=== PATIENT | female | born 1925 | race American Indian/Alaskan Native ===

== ENCOUNTER 2016-11-03 14:37 | Inpatient (IN) | payer MEDICARE ==
[2016-11-03 15:35] LABS: Basophils % (Auto) 0.4 % (0.0-1.8); Eosinophils % (Auto) 0.9 % (0.0-4.3); Hematocrit 37.4 % (30.3-42.9); Hemoglobin 12.4 gm/dl (10.1-14.3); Mean Corpuscular HGB Conc 33 % (30-34); Mean Corpuscular Hemoglobin 30 pg (28-32); Mean Corpuscular Volume 91 fl (79-97); Platelet Count 173 K/mm3 (140-440); Red Cell Distribution Width 15.8 % (13.2-15.2); White Blood Count 10.5 K/mm3 (4.5-11.0)
[2016-11-03 15:46] LABS: BUN/Creatinine Ratio 15.83; Calcium 8.1 mg/dL (8.4-10.2); Chloride 96.3 mmol/L (98-107)
[2016-11-03 15:57] LABS: Potassium 2.6 mmol/L (3.6-5.0)
[2016-11-03] MEDS ORDERED: K-DUR PO ONE (20:11)
[2016-11-03] MEDS ORDERED: MAGNESIUM SULFATE 2GM/50ML 2 GM/50 ML BAG IV ONE (20:39)
--- NOTE | 2016-11-03 21:01 | Emergency Department Report ---
ED General Adult HPI - General Chief complaint: Dyspnea/Respdistress Stated complaint: LOW POTASSIUM Time Seen by Provider: 11/03/16 20:08 Source: family Mode of arrival: Wheelchair Limitations: Physical Limitation - History of Present Illness Initial comments: 89-year-old female with a past medical history dementia and, arthritis, CAD with stent placement, seizures, previous PE, TIA, and atrial fibrillation presents to the hospital complains of low potassium and shortness of breath. Patient outpatient lab work performed by primary care doctor. They received a call today the potassium was 2.8 that she should go to the hospital. Patient does take Lasix and a banana a day but no reports of potassium supplementation. History of hypokalemia in the past. Daughter at the bedside who states that patient does complain of shortness of breath on and off and intermittent lower extremity edema. No complaints of pain at this time. Patient is alert and oriented to self and place but not to year. Patient is wheelchair bound at baseline but able to transfer with assistance. PMD: Dr. Gillette Severity scale (0 -10): 0 - Related Data Home Medications Medication Instructions Recorded Confirmed Last Taken Sertraline HCl 50 mg PO DAILY 03/11/16 07/12/16 Unknown Atorvastatin 40 mg PO HS 03/12/16 07/12/16 Unknown Donepezil HCl 5 mg PO HS 03/12/16 07/12/16 Unknown Metoprolol Tartrate 100 mg PO BID 03/12/16 07/12/16 Unknown levETIRAcetam [Keppra TAB] 750 mg PO QHS 05/05/16 07/12/16 Unknown Furosemide [Lasix TAB] 20 mg PO QDAY 07/12/16 07/12/16 Unknown levETIRAcetam [Keppra TAB] 500 mg PO QAM 07/12/16 07/12/16 Unknown Previous Rx's Medication Instructions Recorded Last Taken Type QUEtiapine [SEROquel] 50 mg PO QHS tablet 03/22/16 Unknown Rx Levothyroxine [Synthroid] 25 mcg PO DAILY@0600 #30 tablet 05/09/16 Unknown Rx Aspirin [Aspirin BABY CHEW TAB] 81 mg PO QDAY #30 tab.chew 07/01/16 Unknown Rx Diltiazem Cd [Cardizem CD] 120 mg PO QDAY #30 capsule 07/15/16 Unknown Rx Allergies Allergy/AdvReac Type Severity Reaction Status Date / Time codeine Allergy Unknown Verified 05/08/14 08:34 tramadol Allergy Dizziness Verified 05/08/14 08:34 ED Review of Systems ROS: Stated complaint: LOW POTASSIUM Other details as noted in HPI Comment: All other systems reviewed and negative Other: Constitutional: No fevers chills Eyes: No eye pain visual changes ENT: No ear pain or throat pain Neck: Denies pain Respiratory: Denies cough wheezing shortness of breath Cardiovascular: Denies chest pain, palpitations, syncope GI: Denies abdominal pain, nausea, vomiting, : Denies dysuria Musculoskeletal: Denies back pain Skin: Denies rash, lesions, erythema Neurologic: Denies headache Psychiatric: Denies suicidal ideation, hallucinations ED Past Medical Hx - Past Medical History Hx Hypertension: Yes Hx Heart Attack/AMI: Yes (stents) Hx Congestive Heart Failure: Yes Hx Deep Vein Thrombosis: No Hx Renal Disease: No Hx Arthritis: Yes Hx Seizures: Yes (unspecified/last seizure March 2016) Hx Kidney Stones: No Hx Dementia: Yes Hx HIV: No Additional medical history: Gout, Hyperlipidemia, MRSA. TIA, PE, A-fib (No bloodthinners in med bag per [facility]) - Surgical History Hx Coronary Stent: Yes (2009 2 STENT SURGERIES) Hx Open Heart Surgery: No Hx Pacemaker: No Hx Internal Defibrillator: No Hx Cholecystectomy: No Hx Appendectomy: No Hx Breast Surgery: No Additional Surgical History: Bilateral Knee replacement, Hysterectomy,Afib - Social History Smoking Status: Never Smoker Substance Use Type: None - Medications Home Medications: Home Medications Medication Instructions Recorded Confirmed Last Taken Type Sertraline HCl 50 mg PO DAILY 03/11/16 07/12/16 Unknown History Atorvastatin 40 mg PO HS 03/12/16 07/12/16 Unknown History Donepezil HCl 5 mg PO HS 03/12/16 07/12/16 Unknown History Metoprolol Tartrate 100 mg PO BID 03/12/16 07/12/16 Unknown History QUEtiapine [SEROquel] 50 mg PO QHS tablet 03/22/16 07/12/16 Unknown Rx levETIRAcetam [Keppra TAB] 750 mg PO QHS 05/05/16 07/12/16 Unknown History Levothyroxine [Synthroid] 25 mcg PO DAILY@0600 #30 tablet 05/09/16 07/12/16 Unknown Rx Aspirin [Aspirin BABY CHEW TAB] 81 mg PO QDAY #30 tab.chew 07/01/16 07/12/16 Unknown Rx Furosemide [Lasix TAB] 20 mg PO QDAY 07/12/16 07/12/16 Unknown History levETIRAcetam [Keppra TAB] 500 mg PO QAM 07/12/16 07/12/16 Unknown History Diltiazem Cd [Cardizem CD] 120 mg PO QDAY #30 capsule 07/15/16 Unknown Rx ED Physical Exam - General Limitations: Physical Limitation - Other Other exam information: General: No limitations, patient is alert in no acute distress Head exam: Atraumatic, normocephalic Eyes exam: Normal appearance ENT: Moist mucous membrane, normal oropharynx Neck exam: Normal inspection, full range of motion, no meningismus nontender Respiratory exam: Diminished breath sounds right base, no tachypnea or accessory muscle use Cardiovascular: Irregular heart rhythm Abdomen: Soft, nondistended, and nontender, with normal bowel sounds, no rebound, or guarding Extremity: Full range of motion, trace edema lower extremity at this time Back: Normal Inspection, full range of motion, no tenderness Neurologic: Alert, oriented x3, cranial nerves intact, no motor or sensory deficit Psychiatric: normal affect, normal mood Skin: Warm, dry, intact ED Course Vital Signs 11/03/16 11/03/16 14:41 19:47 Temperature 98.6 F 98.1 F Pulse Rate 80 79 Respiratory 18 22 Rate Blood Pressure 152/89 Blood Pressure 154/95 [Left] O2 Sat by Pulse 98 97 Oximetry ED Medical Decision Making - Lab Data Result diagrams: 11/03/16 15:06 11/03/16 15:06 Lab Results 11/03/16 11/03/16 11/03/16 Range/Units 15:06 15:06 15:06 WBC 10.5 (4.5-11.0) K/mm3 RBC 4.10 (3.65-5.03) M/mm3 Hgb 12.4 (10.1-14.3) gm/dl Hct 37.4 (30.3-42.9) % MCV 91 (79-97) fl MCH 30 (28-32) pg MCHC 33 (30-34) % RDW 15.8 H (13.2-15.2) % Plt Count 173 (140-440) K/mm3 Lymph % (Auto) 5.5 L (13.4-35.0) % Edwards % (Auto) 5.5 (0.0-7.3) % Eos % (Auto) 0.9 (0.0-4.3) % Baso % (Auto) 0.4 (0.0-1.8) % Lymph # 0.6 L (1.2-5.4) K/mm3 Edwards # 0.6 (0.0-0.8) K/mm3 Eos # 0.1 (0.0-0.4) K/mm3 Baso # 0.0 (0.0-0.1) K/mm3 Seg Neutrophils % 87.7 H (40.0-70.0) % Seg Neutrophils # 9.2 H (1.8-7.7) K/mm3 Sodium 142 (137-145) mmol/L Potassium 2.6 L* (3.6-5.0) mmol/L Chloride 96.3 L (98-107) mmol/L Carbon Dioxide 30 (22-30) mmol/L Anion Gap 18 mmol/L BUN 19 H (7-17) mg/dL Creatinine 1.2 (0.7-1.2) mg/dL Estimated GFR 51 ml/min BUN/Creatinine Ratio 15.83 % Glucose 132 H (65-100) mg/dL Calcium 8.1 L (8.4-10.2) mg/dL Magnesium (1.7-2.3) mg/dL NT-Pro-B Natriuret Pep 4212 H (0-900) pg/mL 11/03/16 Range/Units 15:06 WBC (4.5-11.0) K/mm3 RBC (3.65-5.03) M/mm3 Hgb (10.1-14.3) gm/dl Hct (30.3-42.9) % MCV (79-97) fl MCH (28-32) pg MCHC (30-34) % RDW (13.2-15.2) % Plt Count (140-440) K/mm3 Lymph % (Auto) (13.4-35.0) % Edwards % (Auto) (0.0-7.3) % Eos % (Auto) (0.0-4.3) % Baso % (Auto) (0.0-1.8) % Lymph # (1.2-5.4) K/mm3 Edwards # (0.0-0.8) K/mm3 Eos # (0.0-0.4) K/mm3 Baso # (0.0-0.1) K/mm3 Seg Neutrophils % (40.0-70.0) % Seg Neutrophils # (1.8-7.7) K/mm3 Sodium (137-145) mmol/L Potassium (3.6-5.0) mmol/L Chloride (98-107) mmol/L Carbon Dioxide (22-30) mmol/L Anion Gap mmol/L BUN (7-17) mg/dL Creatinine (0.7-1.2) mg/dL Estimated GFR ml/min BUN/Creatinine Ratio % Glucose (65-100) mg/dL Calcium (8.4-10.2) mg/dL Magnesium 1.1 L (1.7-2.3) mg/dL NT-Pro-B Natriuret Pep (0-900) pg/mL - EKG Data -: EKG Interpreted by Me (atrial fibrillation rate 79 prolong QT) - EKG Data When compared to previous EKG there are: changes noted (A. fib however QTC 387 at that time compared to 541 today) - Radiology Data Radiology results: image reviewed (chest x-ray: A right pleural effusion) - Medical Decision Making Patient treated with by mouth potassium 40 mg and IV magnesium for hypokalemia and hypomagnesemia. Patient also has right pleural effusion on x-ray has had a history of right and bilateral pleural effusions past. Will admit to the hospital for further evaluation - Differential Diagnosis iatrogenic/drug side effect, poor by mouth intake, arrhythmia, CHF Critical Care Time: No Critical care attestation.: If time is entered above; I have spent that time in minutes in the direct care of this critically ill patient, excluding procedure time. ED Disposition Clinical Impression: Recurrent right pleural effusion, Hypokalemia, Hypomagnesemia, Dementia, Chronic atrial fibrillation Disposition: OP ADMITTED IP TO THIS HOSP Is pt being admited?: Yes Condition: Stable Time of Disposition: 21:03 (Dr Blum/hosp)
[2016-11-03 21:08] LABS: Bilirubin,Urine NEG (Negative); Blood,Urine NEG (Negative); Ketones,Urine NEG (Negative); Leukocyte Esterase,Urine NEG (Negative); Mucus,Urine FEW /HPF; Nitrite,Urine NEG (Negative); Urobilinogen,Urine < 2.0 mg/dL (<2.0)
[2016-11-03 21:13] LABS: Protein,Urine >500 mg/dL (Negative)
[2016-11-03] MEDS ORDERED: ZOFRAN IV PRN (23:01)
[2016-11-03] MEDS ORDERED: TYLENOL PO PRN (23:01)
[2016-11-03] MEDS ORDERED: DULCOLAX PR PRN (23:01)
[2016-11-03] MEDS ORDERED: MILK OF MAGNESIA PO PRN (23:01)
--- NOTE | 2016-11-03 23:11 | History and Physical Report ---
History of Present Illness Date of examination: 11/03/16 Date of admission: 11/03/16 21:03 Chief complaint: 11/03/2016 hypokalemia History of present illness: Patient 89-year-old female with extensive past medical history including dementia osteoarthritis coronary artery disease with stenting seizure disorder TIA atrial fibrillation currently was not on medication. Sees cardiology at [facility]. This is admission to receiving call from primary care physician Dr. Gillette about potassium was low. Patient arrived to the ER with a magnesium of 1.1 and a potassium of 2.6. This was initially corrected in the ER and can be reevaluated in the a.m. Patient also had atrial fibrillation which was no longer on any anticoagulation. Will discuss with cardiology what the benefits and risk may be why patient is not on any anticoagulation besides aspirin. Maybe aspirin alone is all she is a candidate for with her risk factors. Patient also had chronic pleural effusions which are most likely secondary to congestive heart failure we'll obtain an echocardiogram while patient is here. Patient also had some lower extremity edema which daughter is at bedside and had some concerns about. Important to note patient was taking Lasix by mouth and also a banana a day. Past History Past Medical History: arrhythmia, CAD, GERD, heart failure, hypertension, hyperlipidemia, seizures, other (TIA). denies: acute WI, atrial fib, arthritis , cancer, COPD, diabetes, dialysis, DVT, ESRD, hepatitis, HIV/AIDS, hyperthyroidism, hypothyroidism, liver disease, migraines, PVD, renal failure Past Surgical History: hysterectomy, total knee replacement, Other (placement) Social history: no significant social history, lives with family, full code. denies: smoking, alcohol abuse, prescription drug abuse, IV drug use Family history: hypertension Medications and Allergies Allergies Allergy/AdvReac Type Severity Reaction Status Date / Time codeine Allergy Unknown Verified 05/08/14 08:34 tramadol Allergy Dizziness Verified 05/08/14 08:34 Home Medications Medication Instructions Recorded Confirmed Last Taken Type Sertraline HCl 50 mg PO DAILY 03/11/16 07/12/16 Unknown History Atorvastatin 40 mg PO HS 03/12/16 07/12/16 Unknown History Donepezil HCl 5 mg PO HS 03/12/16 07/12/16 Unknown History Metoprolol Tartrate 100 mg PO BID 03/12/16 07/12/16 Unknown History QUEtiapine [SEROquel] 50 mg PO QHS tablet 03/22/16 07/12/16 Unknown Rx levETIRAcetam [Keppra TAB] 750 mg PO QHS 05/05/16 07/12/16 Unknown History Levothyroxine [Synthroid] 25 mcg PO DAILY@0600 #30 tablet 05/09/16 07/12/16 Unknown Rx Aspirin [Aspirin BABY CHEW TAB] 81 mg PO QDAY #30 tab.chew 07/01/16 07/12/16 Unknown Rx Furosemide [Lasix TAB] 20 mg PO QDAY 07/12/16 07/12/16 Unknown History levETIRAcetam [Keppra TAB] 500 mg PO QAM 07/12/16 07/12/16 Unknown History Diltiazem Cd [Cardizem CD] 120 mg PO QDAY #30 capsule 07/15/16 Unknown Rx Review of Systems Constitutional: fatigue, weakness, no weight loss, no weight gain, no fever, no chronic pain, no other Ears, nose, mouth and throat: no deferred, no ear pain, no tinnitis, no decreased hearing, no nose pain, no nasal discharge, no bleeding gums, no mouth pain, no dysphagia, no hoarseness, no sore throat, no swelling in mouth, no headache, no vertigo, no pain front of neck, no neck fullness/pressure, no other Cardiovascular: rapid/irregular heart beat, lightheadedness, high blood pressure , leg edema, no chest pain, no orthopnea, no palpitations, no edema, no syncope , no shortness of breath, no dyspnea on exertion Respiratory: no cough with sputum, no excessive sputum, no dyspnea on exertion, no congestion, no wheezing, no pleurisy, no pain, no pain on inspiration Gastrointestinal: no vomiting, no diarrhea, no constipation, no hematochezia, no loss of appetite, no early satiety, no indigestion, no dyspepsia/bloating, no early satiety Genitourinary Female: stress incontinence, urge incontinence, no urinary frequency Menstruation: post hysterectomy Musculoskeletal: morning stiffness, muscle weakness, limitation of motion, arthritis, no neck pain, no shooting arm pain, no arm numbness/tingling, no shooting leg pain, no fractures, no loss of height Integumentary: no rash, no redness, no sores, no bullae, no lesions, no acne, no dryness, no striae, no hirsutism, no foot/leg ulcers Neurological: head injury, seizures, confusion, memory loss, hearing difficulties, other (poor cognition), no weakness, no numbness, no tingling, no lack of coordination Psychiatric: no change in sleep habits, no insomnia, no hypersomnia, no suicidal ideation, no disorientation Endocrine: no heat intolerance, no excessive thirst, no polydipsia, no polyuria , no excessive sweating, no proptosis, no thyroid mass, no palpatations, no low blood sugars, no recent glucocorticoid use Hematologic/Lymphatic: no lymphadenopathy, no lymphedema Allergic/Immunologic: no urticaria, no gluten intolerance, no seasonal allergies Exam - Constitutional Vitals: Temp Pulse Resp BP Pulse Ox 98.2 F 80 18 157/89 98 11/03/16 22:07 11/03/16 22:07 11/03/16 22:07 11/03/16 22:07 11/03/16 22:07 General appearance: Present: no acute distress, well-nourished - EENT Eyes: Present: PERRL ENT: hearing intact, clear oral mucosa - Neck Neck: Present: supple, normal ROM - Respiratory Respiratory effort: normal Respiratory: bilateral: CTA - Cardiovascular Heart Sounds: Present: S1 & S2. Absent: rub, click - Extremities Extremities: pulses symmetrical Extremity abnormal: edema, other (+2 pitting edema) Peripheral Pulses: within normal limits - Abdominal General gastrointestinal: Present: soft, non-tender, non-distended, normal bowel sounds - Integumentary Integumentary: Present: clear, warm, dry - Musculoskeletal Musculoskeletal: generalized weakness - Psychiatric Psychiatric: cooperative, other (4 cognition) - Neurologic Neurologic: focal deficits Results - Labs CBC & Chem 7: 11/03/16 15:06 11/03/16 15:06 Labs: Laboratory Last Values WBC 10.5 K/mm3 (4.5-11.0) 11/03/16 15:06 RBC 4.10 M/mm3 (3.65-5.03) 11/03/16 15:06 Hgb 12.4 gm/dl (10.1-14.3) 11/03/16 15:06 Hct 37.4 % (30.3-42.9) 11/03/16 15:06 MCV 91 fl (79-97) 11/03/16 15:06 MCH 30 pg (28-32) 11/03/16 15:06 MCHC 33 % (30-34) 11/03/16 15:06 RDW 15.8 % (13.2-15.2) H 11/03/16 15:06 Plt Count 173 K/mm3 (140-440) 11/03/16 15:06 Lymph % (Auto) 5.5 % (13.4-35.0) L 11/03/16 15:06 Winston % (Auto) 5.5 % (0.0-7.3) 11/03/16 15:06 Eos % (Auto) 0.9 % (0.0-4.3) 11/03/16 15:06 Baso % (Auto) 0.4 % (0.0-1.8) 11/03/16 15:06 Lymph # 0.6 K/mm3 (1.2-5.4) L 11/03/16 15:06 Winston # 0.6 K/mm3 (0.0-0.8) 11/03/16 15:06 Eos # 0.1 K/mm3 (0.0-0.4) 11/03/16 15:06 Baso # 0.0 K/mm3 (0.0-0.1) 11/03/16 15:06 Seg Neutrophils % 87.7 % (40.0-70.0) H 11/03/16 15:06 Seg Neutrophils # 9.2 K/mm3 (1.8-7.7) H 11/03/16 15:06 Sodium 142 mmol/L (137-145) 11/03/16 15:06 Potassium 2.6 mmol/L (3.6-5.0) L* 11/03/16 15:06 Chloride 96.3 mmol/L (98-107) L 11/03/16 15:06 Carbon Dioxide 30 mmol/L (22-30) 11/03/16 15:06 Anion Gap 18 mmol/L 11/03/16 15:06 BUN 19 mg/dL (7-17) H 11/03/16 15:06 Creatinine 1.2 mg/dL (0.7-1.2) 11/03/16 15:06 Estimated GFR 51 ml/min 02/23/17 15:06 BUN/Creatinine Ratio 15.83 % 11/03/16 15:06 Glucose 132 mg/dL (65-100) H 11/03/16 15:06 Calcium 8.1 mg/dL (8.4-10.2) L 11/03/16 15:06 Magnesium 1.1 mg/dL (1.7-2.3) L 11/03/16 15:06 NT-Pro-B Natriuret Pep 4212 pg/mL (0-900) H 11/03/16 15:06 Urine Color Yellow (Yellow) 11/03/16 20:42 Urine Turbidity Clear (Clear) 11/03/16 20:42 Urine pH 5.0 (5.0-7.0) 11/03/16 20:42 Ur Specific [place] 1.022 (1.003-1.030) 11/03/16 20:42 Urine Protein >500 mg/dL (Negative) 11/03/16 20:42 Urine Glucose (UA) Neg mg/dL (Negative) 11/03/16 20:42 Urine Ketones Neg mg/dL (Negative) 11/03/16 20:42 Urine Blood Neg (Negative) 11/03/16 20:42 Urine Nitrite Neg (Negative) 11/03/16 20:42 Urine Bilirubin Neg (Negative) 11/03/16 20:42 Urine Urobilinogen < 2.0 mg/dL (<2.0) 11/03/16 20:42 Ur Leukocyte Esterase Neg (Negative) 11/03/16 20:42 Urine WBC (Auto) 1.0 /HPF (0.0-6.0) 11/03/16 20:42 Urine RBC (Auto) 1.0 /HPF (0.0-6.0) 11/03/16 20:42 U Epithel Cells (Auto) < 1.0 /HPF (0-13.0) 11/03/16 20:42 Hyaline Casts 1 /LPF 11/03/16 20:42 Urine Mucus Few /HPF 11/03/16 20:42 Assessment and Plan Advance Directives: Yes VTE prophylaxis?: Chemical Plan of care discussed with patient/family: Yes - Patient Problems (1) Chronic atrial fibrillation Current Visit: Yes Status: Acute Plan to address problem: She'll with chronic A. fib currently on aspirin alone. This may be staying for patient with low risk. We'll need to review past history from cardiology [facility]. We'll continue aspirin alone at this particular time rate fairly well-controlled. Patient though remains irregular. Cristy gives vague history of possible bleeding therefore would not use Coumadin at this particular time risk may outweigh benefits. We need more information. She'll continue Cardizem and metoprolol which patient is currently taking now. (2) Hypokalemia Current Visit: Yes Status: Acute Plan to address problem: Upper kalemia most likely secondary to patient being on diarrhetic and no potassium supplementation has been corrected in the ED will follow-up labs in the a.m. to make sure magnesium and potassium is fully corrected and will titrate accordingly. (3) Hypomagnesemia Current Visit: Yes Status: Acute Plan to address problem: Again corrected in ED will follow-up magnesium in a.m. to ensure fully corrected. (4) Recurrent right pleural effusion Current Visit: Yes Status: Acute Plan to address problem: Recurrent right pleural effusion most likely secondary to chronic congestive heart failure. We'll obtain echocardiogram cardiology consult with Jad can evaluate echo and atrial fibrillation. (5) Dementia Current Visit: Yes Status: Chronic Qualifiers: Dementia type: D Alzheimer's disease onset: A Dementia behavioral disturbance: without behavioral disturbance (6) Hypertension Current Visit: No Status: Chronic Qualifiers: Hypertension type: essential hypertension Qualified Code(s): I10 - Essential (primary) hypertension Plan to address problem: Continue all antihypertensives for now blood pressure on average 157/89 with titrate accordingly.
[2016-11-04] MEDS: ZOLOFT PO SCH ×2 (01:08→10:34)
[2016-11-04] MEDS: LOPRESSOR PO SCH ×3 (01:09→21:34)
[2016-11-04] MEDS: SYNTHROID PO SCH (05:44)
[2016-11-04 06:00] LABS: Albumin/Globulin Ratio 1.1 %; BUN/Creatinine Ratio 15.45; Bilirubin,Total 0.6 mg/dL (0.1-1.2); Calcium 7.4 mg/dL (8.4-10.2); Chloride 99.4 mmol/L (98-107); Total Protein 5.8 g/dL (6.3-8.2)
--- NOTE | 2016-11-04 08:39 | Admit Criteria Form ---
Admission Criteria Documentation: PLEURAL EFFUSION Clinical Indications for Admission to Inpatient Care (Place 'X' for any and all applicable criteria): Admission is indicated for ANY ONE of the following (1)(2)(3): [ ]I. Pneumonia-related effusion requiring drainage as indicated by ANY ONE of the following [A]: [ ]a) Large pleural effusion (symptomatic or greater than one-half of hemithorax) [ ]b) Loculated effusion [ ]c) Pleural thickening [ ]d) Pleural fluid analysis results, including ANY ONE of the following: [ ]i) Positive Gram stain or culture for bacteria [ ]ii) Pus [ ]iii) pH less than 7.20 [ X]II. Inpatient admission required rather than observation care (Also use Pleural Effusion: Observation Care criteria as appropriate) because of ANY ONE of the following: [ ]a) Hemodynamic instability that is severe or persistent [X ]b) Respiratory distress that is severe or persistent [ ]c) Complication of drainage (e.g., pneumothorax) that requires inpatient care [ ]d) Etiology that requires inpatient care (e.g., pulmonary embolism , trauma) [ ]e) Severe pain requiring acute inpatient management [ ]f) Supplemental O2 or respiration drug for over 24 hrs that are performable only in an inpatient setting [ ]g) Chest tube placement with active evacuation (e.g., suction, drainage) [ ]h) Pulmonary artery catheter monitoring [ ]i) Epidural analgesia (8) [ ]j) Continuous IV infusion of anticoagulation, platelet inhibitor, vasoactive, or antiarrhythmic medication. [X ]k) Other condition, treatment or monitoring requiring inpatient admission [ ]l) Immediate inpatient surgery [ ]III. Hemothorax [ ]IV. Empyema [ ]V. Pleural effusion with concomitant pneumothorax [X ]. Recurrent or malignant pleural effusion requiring pleurodesis (4) Extended stay beyond goal length of stay may be needed for (27)(28): [ ]a) Empyema or complicated parapneumonic effusion (24)(29) [ ]b) Malignant pleural effusion (4) [ ]c) Pleural effusion due to trauma or perforated esophagus [ ]d) Pleural effusion due to pulmonary embolism (30) [ ]e) Clinically significant re-expansion pulmonary edema [ ]f) Hemothorax [ ]g) Renal failure [ ]h) Trapped lung (e.g., benign or malignant thickened pleura preventing lung re-expansion) (31) [ ]i) Underlying etiology necessitates ongoing inpatient care (e.g., pneumonia, heart failure, malignancy) [ ]j) Complications of thoracentesis, thoracostomy tube, or pleural cath. placement The original [facility] [employer] content created by [facility] [employer] has been revised. The portions of the content which have been revised are identified through the use of italic text or in bold, and [facility] [employer] has neither reviewed nor approved the modified material. All other unmodified content is copyright [facility] [employer]. Please see references footnoted in the original [facility] [employer] edition 2016 Admission Criteria Met: Yes
[2016-11-04] MEDS ORDERED: K-DUR PO ONE ×2 (09:30→16:30)
[2016-11-04] MEDS ORDERED: LOPRESSOR PO SCH (10:00)
[2016-11-04] MEDS ORDERED: LOVENOX SUB-Q SCH (10:00)
[2016-11-04] MEDS ORDERED: ZOLOFT PO SCH (10:00)
[2016-11-04] MEDS ORDERED: PEPCID IV SCH (10:00)
[2016-11-04] MEDS: LOVENOX SUB-Q SCH (10:33)
[2016-11-04] MEDS: KEPPRA PO SCH ×2 (10:35→21:30)
[2016-11-04] MEDS: BABY ASPIRIN PO SCH (10:35)
--- NOTE | 2016-11-04 10:56 | XRay Report ---
Single view chest: Compared to 07/12/16. History: Shortness of breath. Findings: Cardiomegaly with bilateral pleural effusion. No consolidation. No significant interval change. Impression: No significant interval change.
[2016-11-04] MEDS: CARDIZEM CD PO SCH (13:09)
--- NOTE | 2016-11-04 16:36 | Progress Note ---
Assessment and Plan Assessment and plan: A. fib with RVR - Patient is on diltiazem, metoprolol - Patient's heart rate showed in the 150's and 160's - Patient is transferred to IV metoprolol to telemetry floor - Cardiology consult is placed Hypokalemia and hypomagnesemia - Repleted - We will check BMP and magnesium stat Disposition Plan: we'll be discharged once the arrhythmia is controlled History Interval history: Patient denied any chest pain, tele monitor showed A. fib with RVR. Hospitalist Physical - Physical exam Narrative exam: Not in cardiopulmonary distress. Vital signs as documented. Head exam is unremarkable. No scleral icterus . Neck is without jugular venous distension, thyromegaly, or carotid bruits. Lungs are clear to auscultation. Cardiac exam reveals regularly irregular. Abdominal exam reveals normal bowel sounds, no masses, no organomegaly and no aortic enlargement. Extremities are nonedematous and both femoral and pedal pulses are normal. 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 No focal weakness. - Constitutional Vitals: Temp Pulse Resp BP Pulse Ox 98.2 F 125 H 22 115/101 99 11/04/16 14:44 11/04/16 14:44 11/04/16 14:44 11/04/16 14:44 11/04/16 14:44 General appearance: Present: no acute distress, well-nourished Results - Labs CBC & Chem 7: 11/03/16 15:06 11/04/16 04:26 Labs: Laboratory Last Values WBC 10.5 K/mm3 (4.5-11.0) 11/03/16 15:06 RBC 4.10 M/mm3 (3.65-5.03) 11/03/16 15:06 Hgb 12.4 gm/dl (10.1-14.3) 11/03/16 15:06 Hct 37.4 % (30.3-42.9) 11/03/16 15:06 MCV 91 fl (79-97) 11/03/16 15:06 MCH 30 pg (28-32) 11/03/16 15:06 MCHC 33 % (30-34) 11/03/16 15:06 RDW 15.8 % (13.2-15.2) H 11/03/16 15:06 Plt Count 173 K/mm3 (140-440) 11/03/16 15:06 Lymph % (Auto) 5.5 % (13.4-35.0) L 11/03/16 15:06 [place] % (Auto) 5.5 % (0.0-7.3) 11/03/16 15:06 Eos % (Auto) 0.9 % (0.0-4.3) 11/03/16 15:06 Baso % (Auto) 0.4 % (0.0-1.8) 11/03/16 15:06 Lymph # 0.6 K/mm3 (1.2-5.4) L 11/03/16 15:06 [place] # 0.6 K/mm3 (0.0-0.8) 11/03/16 15:06 Eos # 0.1 K/mm3 (0.0-0.4) 11/03/16 15:06 Baso # 0.0 K/mm3 (0.0-0.1) 11/03/16 15:06 Seg Neutrophils % 87.7 % (40.0-70.0) H 11/03/16 15:06 Seg Neutrophils # 9.2 K/mm3 (1.8-7.7) H 11/03/16 15:06 Sodium 142 mmol/L (137-145) 11/04/16 04:26 Potassium 3.0 mmol/L (3.6-5.0) L 11/04/16 04:26 Chloride 99.4 mmol/L (98-107) 11/04/16 04:26 Carbon Dioxide 28 mmol/L (22-30) 11/04/16 04:26 Anion Gap 18 mmol/L 11/04/16 04:26 BUN 17 mg/dL (7-17) 11/04/16 04:26 Creatinine 1.1 mg/dL (0.7-1.2) 11/04/16 04:26 Estimated GFR 57 ml/min 11/04/16 04:26 BUN/Creatinine Ratio 15.45 % 11/04/16 04:26 Glucose 92 mg/dL (65-100) 11/04/16 04:26 Calcium 7.4 mg/dL (8.4-10.2) L 11/04/16 04:26 Magnesium 1.1 mg/dL (1.7-2.3) L 11/03/16 15:06 Total Bilirubin 0.6 mg/dL (0.1-1.2) 11/04/16 04:26 AST 30 units/L (5-40) 11/04/16 04:26 ALT 21 units/L (7-56) 11/04/16 04:26 Alkaline Phosphatase 110 units/L (35-129) 11/04/16 04:26 NT-Pro-B Natriuret Pep 4212 pg/mL (0-900) H 11/03/16 15:06 Total Protein 5.8 g/dL (6.3-8.2) L 11/04/16 04:26 Albumin 3.0 g/dL (3.9-5) L 11/04/16 04:26 Albumin/Globulin Ratio 1.1 % 11/04/16 04:26 Urine Color Yellow (Yellow) 11/03/16 20:42 Urine Turbidity Clear (Clear) 11/03/16 20:42 Urine pH 5.0 (5.0-7.0) 11/03/16 20:42 Ur Specific [place] 1.022 (1.003-1.030) 11/03/16 20:42 Urine Protein >500 mg/dL (Negative) 11/03/16 20:42 Urine Glucose (UA) Neg mg/dL (Negative) 11/03/16 20:42 Urine Ketones Neg mg/dL (Negative) 11/03/16 20:42 Urine Blood Neg (Negative) 11/03/16 20:42 Urine Nitrite Neg (Negative) 11/03/16 20:42 Urine Bilirubin Neg (Negative) 11/03/16 20:42 Urine Urobilinogen < 2.0 mg/dL (<2.0) 11/03/16 20:42 Ur Leukocyte Esterase Neg (Negative) 11/03/16 20:42 Urine WBC (Auto) 1.0 /HPF (0.0-6.0) 11/03/16 20:42 Urine RBC (Auto) 1.0 /HPF (0.0-6.0) 11/03/16 20:42 U Epithel Cells (Auto) < 1.0 /HPF (0-13.0) 11/03/16 20:42 Hyaline Casts 1 /LPF 11/03/16 20:42 Urine Mucus Few /HPF 11/03/16 20:42 Hypokalemia
[2016-11-04] MEDS: LOPRESSOR IV PRN (17:58)
[2016-11-04 19:22] LABS: Anion Gap 19 mmol/L; Blood Urea Nitrogen 18 mg/dL (7-17); Calcium 7.9 mg/dL (8.4-10.2); Carbon Dioxide 28 mmol/L (22-30); Glucose 119 mg/dL (65-100); Potassium 3.8 mmol/L (3.6-5.0); Sodium 141 mmol/L (137-145)
[2016-11-04] MEDS: ARICEPT PO SCH (21:34)
[2016-11-04] MEDS: PEPCID IV SCH (21:35)
[2016-11-05 05:18] LABS: Anion Gap 20 mmol/L; Blood Urea Nitrogen 20 mg/dL (7-17); Carbon Dioxide 25 mmol/L (22-30); Chloride 100.1 mmol/L (98-107); Glucose 105 mg/dL (65-100); Magnesium 1.3 mg/dL (1.7-2.3); Sodium 141 mmol/L (137-145)
[2016-11-05] MEDS: SYNTHROID PO SCH (06:28)
[2016-11-05] MEDS: LOPRESSOR IV PRN (06:28)
[2016-11-05] MEDS: MORPHINE IV PRN ×3 (10:00→21:17)
[2016-11-05] MEDS: CARDIZEM CD PO SCH (10:09)
[2016-11-05] MEDS: BABY ASPIRIN PO SCH (10:10)
[2016-11-05] MEDS: LOPRESSOR PO SCH ×2 (10:10→21:14)
[2016-11-05] MEDS: ZOLOFT PO SCH (10:11)
[2016-11-05] MEDS: PEPCID IV SCH ×2 (10:11→21:17)
[2016-11-05] MEDS: KEPPRA PO SCH ×2 (10:12→21:15)
[2016-11-05] MEDS: LOVENOX SUB-Q SCH (10:12)
--- NOTE | 2016-11-05 11:08 | Consultation ---
History of Present Illness Consult date: 11/05/16 Consult reason: atrial fibrillation Past History Past Medical History: arrhythmia, CAD, GERD, heart failure, hypertension, hyperlipidemia, seizures, other (TIA). denies: acute HI, atrial fib, arthritis , cancer, COPD, diabetes, dialysis, DVT, ESRD, hepatitis, HIV/AIDS, hyperthyroidism, hypothyroidism, liver disease, migraines, PVD, renal failure Past Surgical History: hysterectomy, total knee replacement, Other (placement) Social history: no significant social history, lives with family, full code. denies: smoking, alcohol abuse, prescription drug abuse, IV drug use Family history: hypertension Medications and Allergies Allergies Allergy/AdvReac Type Severity Reaction Status Date / Time codeine Allergy Unknown Verified 05/08/14 08:34 tramadol Allergy Dizziness Verified 05/08/14 08:34 Home Medications Medication Instructions Recorded Confirmed Last Taken Type Sertraline HCl 50 mg PO DAILY 03/11/16 07/12/16 Unknown History Atorvastatin 40 mg PO HS 03/12/16 07/12/16 Unknown History Donepezil HCl 5 mg PO HS 03/12/16 07/12/16 Unknown History Metoprolol Tartrate 100 mg PO BID 03/12/16 07/12/16 Unknown History QUEtiapine [SEROquel] 50 mg PO QHS tablet 03/22/16 07/12/16 Unknown Rx levETIRAcetam [Keppra TAB] 750 mg PO QHS 05/05/16 07/12/16 Unknown History Levothyroxine [Synthroid] 25 mcg PO DAILY@0600 #30 tablet 05/09/16 07/12/16 Unknown Rx Aspirin [Aspirin BABY CHEW TAB] 81 mg PO QDAY #30 tab.chew 07/01/16 07/12/16 Unknown Rx Furosemide [Lasix TAB] 20 mg PO QDAY 07/12/16 07/12/16 Unknown History levETIRAcetam [Keppra TAB] 500 mg PO QAM 07/12/16 07/12/16 Unknown History Diltiazem Cd [Cardizem CD] 120 mg PO QDAY #30 capsule 07/15/16 Unknown Rx Active Meds: Active Medications Acetaminophen (Tylenol) 650 mg PO Q4H PRN PRN Reason: Pain MILD(1-3)/Fever >100.5/PAGE Last Admin: 11/04/16 21:28 Dose: 650 mg Aspirin (Baby Aspirin) [address] [facility] Last Admin: 11/05/16 10:10 Dose: 81 mg Bisacodyl (Dulcolax) 10 mg [place] QDAY PRN PRN Reason: Constipation unrelieved by MOM Diltiazem HCl (Cardizem Cd) [address] [facility] Last Admin: 11/05/16 10:09 Dose: 120 mg Donepezil HCl (Aricept) [address] [facility] Last Admin: 11/04/16 21:34 Dose: 5 mg Enoxaparin Sodium (Lovenox) 40 mg SUB-Q QDAY [facility] Last Admin: 11/05/16 10:12 Dose: 40 mg Famotidine (Pepcid) [address] [facility] Last Admin: 11/05/16 10:11 Dose: 10 mg Levetiracetam (Keppra) [address] [facility] Last Admin: 11/05/16 10:12 Dose: 500 mg Levetiracetam (Keppra) [address] [facility] Last Admin: 11/04/16 21:30 Dose: 750 mg Levothyroxine Sodium (Synthroid) 25 mcg PO DAILY@0600 [facility] Last Admin: 11/05/16 06:28 Dose: 25 mcg Magnesium Hydroxide (Milk Of Magnesia) 30 ml PO Q4H PRN PRN Reason: Constipation Metoprolol Tartrate (Lopressor) [address] [facility] Last Admin: 11/05/16 10:10 Dose: 100 mg Metoprolol Tartrate (Lopressor) 5 mg IV Q6HR PRN PRN Reason: Tachyarrhythmias Last Admin: 11/05/16 06:28 Dose: 5 mg Morphine Sulfate (Morphine) 2 mg IV Q4H PRN PRN Reason: Pain, Moderate (4-6) Ondansetron HCl (Zofran) 4 mg IV Q8H PRN PRN Reason: N/V unrelieved by Reglan Quetiapine Fumarate (Seroquel) [address] [facility] Sertraline HCl (Zoloft) [address] [facility] Last Admin: 11/05/16 10:11 Dose: 50 mg Physical Examination Vital Signs Temp Pulse Resp BP Pulse Ox 98.6 F 80 18 152/89 98 11/03/16 14:41 11/03/16 14:41 11/03/16 14:41 11/03/16 14:41 11/03/16 14:41 Results 11/03/16 15:06 11/05/16 04:18 Cardiac Enzymes 11/04/16 11/04/16 11/04/16 Range/Units 04:26 18:24 18:24 Sodium 142 141 (137-145) mmol/L Potassium 3.0 L 3.8 D (3.6-5.0) mmol/L Chloride 99.4 98.0 (98-107) mmol/L Carbon Dioxide 28 28 (22-30) mmol/L Anion Gap 18 19 mmol/L BUN 17 18 H (7-17) mg/dL Creatinine 1.1 1.0 (0.7-1.2) mg/dL Estimated GFR 57 > 60 ml/min BUN/Creatinine Ratio 15.45 18.00 % Glucose 92 119 H (65-100) mg/dL Calcium 7.4 L 7.9 L (8.4-10.2) mg/dL Magnesium 1.8 (1.7-2.3) mg/dL Total Bilirubin 0.6 (0.1-1.2) mg/dL ALT 21 (7-56) units/L Alkaline Phosphatase 110 (35-129) units/L Total Protein 5.8 L (6.3-8.2) g/dL Albumin 3.0 L (3.9-5) g/dL Albumin/Globulin Ratio 1.1 % 11/05/16 Range/Units 04:18 Sodium 141 (137-145) mmol/L Potassium 4.0 (3.6-5.0) mmol/L Chloride 100.1 (98-107) mmol/L Carbon Dioxide 25 (22-30) mmol/L Anion Gap 20 mmol/L BUN 20 H (7-17) mg/dL Creatinine 1.0 (0.7-1.2) mg/dL Estimated GFR > 60 ml/min BUN/Creatinine Ratio 20.00 % Glucose 105 H (65-100) mg/dL Calcium 8.0 L (8.4-10.2) mg/dL Magnesium 1.3 L (1.7-2.3) mg/dL Total Bilirubin (0.1-1.2) mg/dL ALT (7-56) units/L Alkaline Phosphatase (35-129) units/L Total Protein (6.3-8.2) g/dL Albumin (3.9-5) g/dL Albumin/Globulin Ratio % Comprehensive Metabolic Panel 11/04/16 11/05/16 Range/Units 18:24 04:18 Sodium 141 141 (137-145) mmol/L Potassium 3.8 D 4.0 (3.6-5.0) mmol/L Chloride 98.0 100.1 (98-107) mmol/L Carbon Dioxide 28 25 (22-30) mmol/L BUN 18 H 20 H (7-17) mg/dL Creatinine 1.0 1.0 (0.7-1.2) mg/dL Glucose 119 H 105 H (65-100) mg/dL Calcium 7.9 L 8.0 L (8.4-10.2) mg/dL Assessment and Plan 89yo AAF: Paroxysmal atrial fibrillation with RVR Currently rate controlled. Continue Lopressor and Cardizem. Pt is not currently a candidate for anticoagulation given dementia, advanced age, and multiple co-morbidities. tte 06/26 re-reviewed Hypokalemia repleted HLP Cont statin. HTN Stable. Hypothyroidism CAD, s/p PCI Seizure d/o Dementia Advanced age clinically improved discussed with daughter at bedside
--- NOTE | 2016-11-05 15:55 | Progress Note ---
Assessment and Plan Assessment and plan: A. fib with RVR - Patient is on diltiazem, metoprolol - Patient's heart rate controlled - Patient is transferred to IV metoprolol to telemetry floor - Cardiology consult is placed Dementia - continue with home medications - Supportive care - Patient was agitated and sitter was in the room Hypokalemia and hypomagnesemia - Repleted Continue to monitor History Interval history: Patient denied any chest pain, tele monitor showed A. fib. Hospitalist Physical - Physical exam Narrative exam: Not in cardiopulmonary distress. Vital signs as documented. Head exam is unremarkable. No scleral icterus . Neck is without jugular venous distension, thyromegaly, or carotid bruits. Lungs are clear to auscultation. Cardiac exam reveals irregularly irregular. Abdominal exam reveals normal bowel sounds, no masses, no organomegaly and no aortic enlargement. Extremities are nonedematous and both femoral and pedal pulses are normal. 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 No focal weakness. - Constitutional Vitals: Temp Pulse Resp BP Pulse Ox 97.5 F L 140 H 18 175/129 97 11/05/16 13:56 11/05/16 13:56 11/05/16 13:56 11/05/16 13:56 11/05/16 13:56 General appearance: Present: no acute distress, well-nourished Results - Labs CBC & Chem 7: 11/03/16 15:06 11/05/16 04:18 Labs: Laboratory Last Values WBC 10.5 K/mm3 (4.5-11.0) 11/03/16 15:06 RBC 4.10 M/mm3 (3.65-5.03) 11/03/16 15:06 Hgb 12.4 gm/dl (10.1-14.3) 11/03/16 15:06 Hct 37.4 % (30.3-42.9) 11/03/16 15:06 MCV 91 fl (79-97) 11/03/16 15:06 MCH 30 pg (28-32) 11/03/16 15:06 MCHC 33 % (30-34) 11/03/16 15:06 RDW 15.8 % (13.2-15.2) H 11/03/16 15:06 Plt Count 173 K/mm3 (140-440) 11/03/16 15:06 Lymph % (Auto) 5.5 % (13.4-35.0) L 11/03/16 15:06 [place] % (Auto) 5.5 % (0.0-7.3) 11/03/16 15:06 Eos % (Auto) 0.9 % (0.0-4.3) 11/03/16 15:06 Baso % (Auto) 0.4 % (0.0-1.8) 11/03/16 15:06 Lymph # 0.6 K/mm3 (1.2-5.4) L 11/03/16 15:06 [place] # 0.6 K/mm3 (0.0-0.8) 11/03/16 15:06 Eos # 0.1 K/mm3 (0.0-0.4) 11/03/16 15:06 Baso # 0.0 K/mm3 (0.0-0.1) 11/03/16 15:06 Seg Neutrophils % 87.7 % (40.0-70.0) H 11/03/16 15:06 Seg Neutrophils # 9.2 K/mm3 (1.8-7.7) H 11/03/16 15:06 Sodium 141 mmol/L (137-145) 11/05/16 04:18 Potassium 4.0 mmol/L (3.6-5.0) 11/05/16 04:18 Chloride 100.1 mmol/L (98-107) 11/05/16 04:18 Carbon Dioxide 25 mmol/L (22-30) 11/05/16 04:18 Anion Gap 20 mmol/L 11/05/16 04:18 BUN 20 mg/dL (7-17) H 11/05/16 04:18 Creatinine 1.0 mg/dL (0.7-1.2) 11/05/16 04:18 Estimated GFR > 60 ml/min 11/05/16 04:18 BUN/Creatinine Ratio 20.00 % 11/05/16 04:18 Glucose 105 mg/dL (65-100) H 11/05/16 04:18 Calcium 8.0 mg/dL (8.4-10.2) L 11/05/16 04:18 Magnesium 1.3 mg/dL (1.7-2.3) L 11/05/16 04:18 Total Bilirubin 0.6 mg/dL (0.1-1.2) 11/04/16 04:26 AST 30 units/L (5-40) 11/04/16 04:26 ALT 21 units/L (7-56) 11/04/16 04:26 Alkaline Phosphatase 110 units/L (35-129) 11/04/16 04:26 NT-Pro-B Natriuret Pep 4212 pg/mL (0-900) H 11/03/16 15:06 Total Protein 5.8 g/dL (6.3-8.2) L 11/04/16 04:26 Albumin 3.0 g/dL (3.9-5) L 11/04/16 04:26 Albumin/Globulin Ratio 1.1 % 11/04/16 04:26 Urine Color Yellow (Yellow) 11/03/16 20:42 Urine Turbidity Clear (Clear) 11/03/16 20:42 Urine pH 5.0 (5.0-7.0) 11/03/16 20:42 Ur Specific [place] 1.022 (1.003-1.030) 11/03/16 20:42 Urine Protein >500 mg/dL (Negative) 11/03/16 20:42 Urine Glucose (UA) Neg mg/dL (Negative) 11/03/16 20:42 Urine Ketones Neg mg/dL (Negative) 11/03/16 20:42 Urine Blood Neg (Negative) 11/03/16 20:42 Urine Nitrite Neg (Negative) 11/03/16 20:42 Urine Bilirubin Neg (Negative) 11/03/16 20:42 Urine Urobilinogen < 2.0 mg/dL (<2.0) 11/03/16 20:42 Ur Leukocyte Esterase Neg (Negative) 11/03/16 20:42 Urine WBC (Auto) 1.0 /HPF (0.0-6.0) 11/03/16 20:42 Urine RBC (Auto) 1.0 /HPF (0.0-6.0) 11/03/16 20:42 U Epithel Cells (Auto) < 1.0 /HPF (0-13.0) 11/03/16 20:42 Hyaline Casts 1 /LPF 11/03/16 20:42 Urine Mucus Few /HPF 11/03/16 20:42
[2016-11-05] MEDS ORDERED: MAGNESIUM SULFATE IV ONE (15:56)
[2016-11-05] MEDS ORDERED: MAGNESIUM SULFATE 2GM/50ML 2 GM/50 ML BAG IV ONE (16:00)
[2016-11-05] MEDS: ARICEPT PO SCH (21:16)
[2016-11-06 05:16] LABS: BUN/Creatinine Ratio 18.57; Calcium 7.9 mg/dL (8.4-10.2); Potassium 4.3 mmol/L (3.6-5.0)
[2016-11-06] MEDS: SYNTHROID PO SCH (06:27)
[2016-11-06] MEDS: CARDIZEM CD PO SCH (10:03)
[2016-11-06] MEDS: ZOLOFT PO SCH (10:04)
[2016-11-06] MEDS: LOPRESSOR PO SCH ×2 (10:04→22:05)
[2016-11-06] MEDS: LOVENOX SUB-Q SCH (10:05)
[2016-11-06] MEDS: BABY ASPIRIN PO SCH (10:05)
[2016-11-06] MEDS: KEPPRA PO SCH ×2 (10:16→22:06)
[2016-11-06] MEDS: PEPCID PO SCH ×2 (10:17→22:04)
--- NOTE | 2016-11-06 12:01 | Progress Note ---
Assessment and Plan 89yo AAF: Paroxysmal atrial fibrillation with RVR Currently rate controlled. Continue Lopressor and Cardizem. Pt is not currently a candidate for anticoagulation given dementia, advanced age, and multiple co-morbidities. tte 06/26 re-reviewed Hypokalemia repleted HLP Cont statin. HTN Stable. Hypothyroidism CAD, s/p PCI Seizure d/o Dementia Advanced age clinically improved Subjective Date of service: 11/06/16 Objective Vital Signs Temp Pulse Pulse Pulse Resp Resp BP 11/06/16 08:00 97.6 F 116 H 18 11/06/16 05:27 97.4 F L 97 H 20 11/06/16 00:19 97.4 F L 87 20 11/05/16 21:47 20 11/05/16 21:20 22 11/05/16 21:17 20 11/05/16 21:06 98.9 F 90 20 177/100 11/05/16 20:00 110 H 22 11/05/16 19:17 113 H 11/05/16 17:56 97.7 F 100 H 18 11/05/16 17:43 20 11/05/16 17:13 20 11/05/16 13:56 97.5 F L 140 H 18 BP Pulse Ox 11/06/16 08:00 128/92 93 11/06/16 05:27 128/80 98 11/06/16 00:19 106/76 97 11/05/16 21:47 11/05/16 21:20 11/05/16 21:17 11/05/16 21:06 161/103 99 11/05/16 20:00 97 11/05/16 19:17 11/05/16 17:56 142/90 95 11/05/16 17:43 11/05/16 17:13 11/05/16 13:56 175/129 97 - Labs and Meds Comprehensive Metabolic Panel 11/06/16 Range/Units 04:26 Sodium 141 (137-145) mmol/L Potassium 4.3 (3.6-5.0) mmol/L Chloride 101.0 (98-107) mmol/L Carbon Dioxide 24 (22-30) mmol/L BUN 26 H (7-17) mg/dL Creatinine 1.4 H (0.7-1.2) mg/dL Glucose 112 H (65-100) mg/dL Calcium 7.9 L (8.4-10.2) mg/dL
--- NOTE | 2016-11-06 13:00 | Progress Note ---
Assessment and Plan Assessment and plan: A. fib with RVR - Patient is on diltiazem, metoprolol - Patient's heart rate is not controlled - Patient is transferred to IV metoprolol to telemetry floor Dementia - continue with home medications - Supportive care - Patient was agitated and sitter was in the room Hypokalemia and hypomagnesemia - Repleted Continue to monitor Disposition - Possible discharge tomorrow if patient's heart rate is controlled. History Interval history: Patient denied any chest pain, tele monitor showed A. fib with RVR Hospitalist Physical - Physical exam Narrative exam: Not in cardiopulmonary distress. Vital signs as documented. Head exam is unremarkable. No scleral icterus . Neck is without jugular venous distension, thyromegaly, or carotid bruits. Lungs are clear to auscultation. Cardiac exam reveals irregularly irregular. Tachycardia. Abdominal exam reveals normal bowel sounds, no masses, no organomegaly and no aortic enlargement. Extremities are nonedematous and both femoral and pedal pulses are normal. 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 No focal weakness. - Constitutional Vitals: Temp Pulse Resp BP Pulse Ox 97.6 F 116 H 18 128/92 93 11/06/16 08:00 11/06/16 08:00 11/06/16 08:00 11/06/16 08:00 11/06/16 08:00 General appearance: Present: no acute distress, well-nourished Results - Labs CBC & Chem 7: 11/03/16 15:06 11/06/16 04:26 Labs: Laboratory Last Values WBC 10.5 K/mm3 (4.5-11.0) 11/03/16 15:06 RBC 4.10 M/mm3 (3.65-5.03) 11/03/16 15:06 Hgb 12.4 gm/dl (10.1-14.3) 11/03/16 15:06 Hct 37.4 % (30.3-42.9) 11/03/16 15:06 MCV 91 fl (79-97) 11/03/16 15:06 MCH 30 pg (28-32) 11/03/16 15:06 MCHC 33 % (30-34) 11/03/16 15:06 RDW 15.8 % (13.2-15.2) H 11/03/16 15:06 Plt Count 173 K/mm3 (140-440) 11/03/16 15:06 Lymph % (Auto) 5.5 % (13.4-35.0) L 11/03/16 15:06 [place] % (Auto) 5.5 % (0.0-7.3) 11/03/16 15:06 Eos % (Auto) 0.9 % (0.0-4.3) 11/03/16 15:06 Baso % (Auto) 0.4 % (0.0-1.8) 11/03/16 15:06 Lymph # 0.6 K/mm3 (1.2-5.4) L 11/03/16 15:06 [place] # 0.6 K/mm3 (0.0-0.8) 11/03/16 15:06 Eos # 0.1 K/mm3 (0.0-0.4) 11/03/16 15:06 Baso # 0.0 K/mm3 (0.0-0.1) 11/03/16 15:06 Seg Neutrophils % 87.7 % (40.0-70.0) H 11/03/16 15:06 Seg Neutrophils # 9.2 K/mm3 (1.8-7.7) H 11/03/16 15:06 Sodium 141 mmol/L (137-145) 11/06/16 04:26 Potassium 4.3 mmol/L (3.6-5.0) 11/06/16 04:26 Chloride 101.0 mmol/L (98-107) 11/06/16 04:26 Carbon Dioxide 24 mmol/L (22-30) 11/06/16 04:26 Anion Gap 20 mmol/L 11/06/16 04:26 BUN 26 mg/dL (7-17) H 11/06/16 04:26 Creatinine 1.4 mg/dL (0.7-1.2) H 11/06/16 04:26 Estimated GFR 43 ml/min 11/06/16 04:26 BUN/Creatinine Ratio 18.57 % 11/06/16 04:26 Glucose 112 mg/dL (65-100) H 11/06/16 04:26 Calcium 7.9 mg/dL (8.4-10.2) L 11/06/16 04:26 Magnesium 1.3 mg/dL (1.7-2.3) L 11/05/16 04:18 Total Bilirubin 0.6 mg/dL (0.1-1.2) 11/04/16 04:26 AST 30 units/L (5-40) 11/04/16 04:26 ALT 21 units/L (7-56) 11/04/16 04:26 Alkaline Phosphatase 110 units/L (35-129) 11/04/16 04:26 NT-Pro-B Natriuret Pep 4212 pg/mL (0-900) H 11/03/16 15:06 Total Protein 5.8 g/dL (6.3-8.2) L 11/04/16 04:26 Albumin 3.0 g/dL (3.9-5) L 11/04/16 04:26 Albumin/Globulin Ratio 1.1 % 11/04/16 04:26 Urine Color Yellow (Yellow) 11/03/16 20:42 Urine Turbidity Clear (Clear) 11/03/16 20:42 Urine pH 5.0 (5.0-7.0) 11/03/16 20:42 Ur Specific [place] 1.022 (1.003-1.030) 11/03/16 20:42 Urine Protein >500 mg/dL (Negative) 11/03/16 20:42 Urine Glucose (UA) Neg mg/dL (Negative) 11/03/16 20:42 Urine Ketones Neg mg/dL (Negative) 11/03/16 20:42 Urine Blood Neg (Negative) 11/03/16 20:42 Urine Nitrite Neg (Negative) 11/03/16 20:42 Urine Bilirubin Neg (Negative) 11/03/16 20:42 Urine Urobilinogen < 2.0 mg/dL (<2.0) 11/03/16 20:42 Ur Leukocyte Esterase Neg (Negative) 11/03/16 20:42 Urine WBC (Auto) 1.0 /HPF (0.0-6.0) 11/03/16 20:42 Urine RBC (Auto) 1.0 /HPF (0.0-6.0) 11/03/16 20:42 U Epithel Cells (Auto) < 1.0 /HPF (0-13.0) 11/03/16 20:42 Hyaline Casts 1 /LPF 11/03/16 20:42 Urine Mucus Few /HPF 11/03/16 20:42
[2016-11-06] MEDS: ARICEPT PO SCH (22:05)
[2016-11-06] MEDS: MORPHINE IV PRN (22:11)
[2016-11-07] MEDS: SYNTHROID PO SCH (05:24)
[2016-11-07 08:03] LABS: BUN/Creatinine Ratio 17.64; Calcium 8.3 mg/dL (8.4-10.2); Chloride 98.3 mmol/L (98-107); Potassium 3.8 mmol/L (3.6-5.0)
[2016-11-07] MEDS: PEPCID PO SCH (09:53)
[2016-11-07] MEDS: CARDIZEM CD PO SCH (09:53)
[2016-11-07] MEDS: BABY ASPIRIN PO SCH (09:54)
[2016-11-07] MEDS: ZOLOFT PO SCH (09:54)
[2016-11-07] MEDS: LOVENOX SUB-Q SCH (09:55)
[2016-11-07] MEDS: LOPRESSOR PO SCH (09:55)
[2016-11-07] MEDS ORDERED: CARDIZEM CD PO SCH (10:00)
--- NOTE | 2016-11-07 10:31 | Discharge Summary ---
Providers - Providers Date of Admission: 11/03/16 21:03 Date of discharge: 11/07/16 Attending physician: GOMEZ ROSARIO MD 11/03/16 23:18 Consult to Cardiac Rehabilitation [CONS] Routine Reason For Exam: Phase I 11/04/16 07:02 Physical Therapy Evaluation and Treat [CONS] Routine Comment: Reason For Exam: OOB to BR Mode of Transport?: Wheelchair 11/04/16 17:45 Consult to Physician [CONS] Routine Consulting Provider: CRUZ PEGUERO Reason For Exam: Afib with RVR Place consult to:: cardiology Notified:: Irena YOO Phone number called:: [phone] Was contact made?: Yes If yes, spoke with:: Gretchen-answering service Time called:: 08:15 Primary care physician: TIMMY VINCENT Hospitalization Reason for admission: hypokalemia, hypomagnesemia, A. fib with RVR Condition: Stable Disposition: DC/TX HOME UNDER HOME HEALTH Time spent for discharge: 31 minutes - Discharge Diagnoses (1) Chronic atrial fibrillation Status: Acute (2) Hypokalemia Status: Acute (3) Hypomagnesemia Status: Acute Core Measure Documentation - Palliative Care Palliative Care/ Comfort Measures: Not Applicable - Core Measures Any of the following diagnoses?: none Exam - Physical Exam Narrative exam: Not in cardiopulmonary distress. Vital signs as documented. Head exam is unremarkable. No scleral icterus . Neck is without jugular venous distension, thyromegaly, or carotid bruits. Lungs are clear to auscultation. Cardiac exam reveals irregularly irregular. Tachycardia. Abdominal exam reveals normal bowel sounds, no masses, no organomegaly and no aortic enlargement. Extremities are nonedematous and both femoral and pedal pulses are normal. 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 No focal weakness. - Constitutional Vitals: Temp Pulse Resp BP Pulse Ox 97.9 F 110 H 20 125/87 98 11/07/16 04:35 11/07/16 09:55 11/07/16 04:35 11/07/16 04:35 11/07/16 04:35 Plan Activity: fall precautions Diet: low cholesterol, low salt Follow up with: TIMMY VINCENT MD [Primary Care Provider] - 7 Days Prescriptions: Diltiazem Cd [Cardizem CD] 180 mg PO QDAY #30 capsule
--- NOTE | 2016-11-07 10:50 | Progress Note ---
Assessment and Plan 89yo AAF: Chronic atrial fibrillation--> HR 90s-120s today increase cardizem CD to 180mg daily continue metoprolol 100mg BID pt is not a candidate for anticoagulation given dementia, advanced age, and multiple co-morbidities Echo 10/2016: moderate LVH, EF 55-60%, mild-moderate MR, severe pulmonary hypertension Hypokalemia repleted HTN stable Hyperlipidemia Hypothyroidism CAD, s/p PCI Seizure d/o Dementia Will increase cardizem CD to 180mg daily. Stable cardiac status. The patient has been seen in conjunction with Dr. Padron who agrees with the assessment and plan of care. Subjective Date of service: 11/07/16 Principal diagnosis: atrial fibrillation Interval history: The patient is resting in bed. No new complaints. Atrial fibrillation with HR 90s-120s on the monitor. Objective Last Vital Signs Temp 97.9 F 11/07/16 04:35 Pulse 110 H 11/07/16 09:55 Resp 20 11/07/16 04:35 BP 125/87 11/07/16 04:35 Pulse Ox 98 11/07/16 04:35 - Physical Examination General: No Apparent Distress HEENT: Positive: Normocephaly, Mucus Membranes Moist Neck: Positive: neck supple, trachea midline Cardiac: Positive: irregularly irregular, S1/S2 Lungs: Positive: clear to auscultation Neuro: Positive: Other (dementia) Abdomen: Positive: Soft, Active Bowel Sounds. Negative: Tender Skin: Positive: Clear. Negative: Rash Extremities: Present: normal. Absent: edema - Labs and Meds Comprehensive Metabolic Panel 11/07/16 Range/Units 07:03 Sodium 139 (137-145) mmol/L Potassium 3.8 (3.6-5.0) mmol/L Chloride 98.3 (98-107) mmol/L Carbon Dioxide 27 (22-30) mmol/L BUN 30 H (7-17) mg/dL Creatinine 1.7 H (0.7-1.2) mg/dL Glucose 104 H (65-100) mg/dL Calcium 8.3 L (8.4-10.2) mg/dL - Imaging and Cardiology Echo: report reviewed - Telemetry EKG Rhythm: Atrial Fibrillation
[2016-11-07 11:28] VITALS: BP 115/65
== END 2016-11-07 13:20 | disposition home health service (06) | DRG 641 ==
LOC: ED 14:37 → 3A 21:03 → 4A 11-04 17:36
PROVIDERS: ADMIT Internal Medicine; ATTEND Internal Medicine
DX: E87.6 Hypokalemia (principal); J90 Pleural effusion, not elsewhere classified; I47.2 Ventricular tachycardia; E83.42 Hypomagnesemia; F03.90 Unspecified dementia, unspecified severity, without behavioral disturbance, psychotic disturbance, mood disturbance, and anxiety; M19.90 Unspecified osteoarthritis, unspecified site; I48.0 Paroxysmal atrial fibrillation; I25.10 Atherosclerotic heart disease of native coronary artery without angina pectoris; I11.0 Hypertensive heart disease with heart failure; E03.9 Hypothyroidism, unspecified; I50.9 Heart failure, unspecified; E78.5 Hyperlipidemia, unspecified; M10.9 Gout, unspecified; G40.909 Epilepsy, unspecified, not intractable, without status epilepticus; K21.9 Gastro-esophageal reflux disease without esophagitis; Z82.49 Family history of ischemic heart disease and other diseases of the circulatory system; Z96.653 Presence of artificial knee joint, bilateral; Z86.73 Personal history of transient ischemic attack (TIA), and cerebral infarction without residual deficits; Z88.5 Allergy status to narcotic agent; Z90.710 Acquired absence of both cervix and uterus
CPT/HCPCS: 36415; 71010; 80048; 80053; 81001; 83735; 83880; 85025; 93005; 93010; 93306; 96365; J1650; J2270; J2405; J3475